=== PATIENT | male | born 1960 | race Caucasian/White ===

== ENCOUNTER 2016-12-21 09:55 | Day surgery (SDC) | payer OTHER ==
[~2016-12-21] VITALS: Ht 188 cm; Wt 92.9 kg
[~2016-12-21 09:55] MED LIST: CITALOPRAM HBR20 MG PO; MELOXICAM15 MG PO
--- NOTE | 2016-12-21 13:20 | NUR ---
12/21/16 1320 Ericka Irving report from financial services manager.
--- NOTE | 2016-12-22 06:28 | OR ---
[facility] [address], [place] [address] Signed DATE OF OPERATION: 12/21/2016 SURGEON: Hira Montenegro MD COLONOSCOPY REPORT PREOPERATIVE DIAGNOSIS: Screening. POSTOPERATIVE DIAGNOSIS: Moderate internal hemorrhoids. PROCEDURE: Colonoscopy without biopsy. ESTIMATED BLOOD LOSS: None. INDICATIONS: Devaughn is a 56-year-old gentleman who was asked to see me for his initial screening colonoscopy. He has no lower GI complaints. There is no family history of colon cancer or polyps. In the office, I gave Devaughn a pamphlet on endoscopy and we looked at that together along with the risks including, but not limited to gas, bloating, crampy abdominal pain, bleeding, perforation requiring surgery, and missed diagnosis. We also discussed the need for IV conscious sedation. Devaughn uses citalopram on a daily basis. Consequently, we asked an anesthesia provider to help us with increased monitoring and sedation with propofol. Keppra would be a molina decision. Devaughn had expressed understanding and wished to proceed. PROCEDURE NOTE: Devaughn was taken into our endoscopy suite and placed in the left lateral decubitus position. He was given IV sedation with Versed with propofol per nurse new car make ready worker. A digital rectal exam was performed and this was unremarkable. The adult colonoscope was introduced and advanced all around into the cecum under direct visualization of camera. It took extra propofol and abdominal compression in order to advance the scope to a long redundant and somewhat tortuous sigmoid colon. His prep was moderate. There were a couple of areas of liquid stool. It was difficult to irrigate and suction out completely. The scope was then slowly withdrawn. We saw no pathology throughout the entire colon or rectum. Upon retroflexion of scope, he does have minimal to moderate internal hemorrhoid columns. After this, the gas was suctioned out. The colonoscope removed. Devaughn tolerated procedure quite well. RECOMMENDATIONS: I can see Devaughn back in 10 years for repeat colonoscopy. Electronically Signed By: HIRA MONTENEGRO MD 12/22/16 0628 PATIENT NAME: DEVAUGHN DUMONT OPERATIVE REPORT DATE OF : 62 PHYSICIAN: HIRA MONTENEGRO MD REPORT #: [id number] REPORT IS CONFIDENTIAL AND NOT TO BE RELEASED WITHOUT AUTHORIZATION [address] [address] Signed MD MARITO Morocho/ARVIND /[id number] cc: BEHZAD Nunez MD Electronically Signed By: HIRA MONTENEGRO MD 12/22/16 0628 PATIENT NAME: DEVAUGHN DUMONT OPERATIVE REPORT DATE OF : 62 PHYSICIAN: HIRA MONTENEGRO MD REPORT #: [id number] REPORT IS CONFIDENTIAL AND NOT TO BE RELEASED WITHOUT AUTHORIZATION
== END 2016-12-21 14:05 | disposition home or self-care (01) ==
LOC: OPS 09:55 → DS 09:55
PROVIDERS: Colon & Rectal Surgery
PROC: 0DJD8ZZ Inspection of Lower Intestinal Tract, Via Natural or Artificial Opening Endoscopic (ICD-10-PCS; principal; 2016-12-21 11:00)
DX: Z12.11 Encounter for screening for malignant neoplasm of colon (principal); K64.8 Other hemorrhoids; Z98.890 Other specified postprocedural states
CPT/HCPCS: 00810; J2704; J7120